=== PATIENT | female | born 1995 | race Caucasian/White ===

== ENCOUNTER 2016-09-11 13:06 | Outpatient (CLI) | payer OTHER ==
[~2016-09-11] VITALS: Ht 170.2 cm; Wt 77.8 kg
[2016-09-11 13:09] VITALS: Ht 170.2 cm; Wt 77.8 kg
[2016-09-11] MEDS ORDERED: PRENAT PO (13:10)
--- NOTE | 2016-09-11 15:24 | RADRPT ---
PROCEDURE: US OB. CLINICAL INDICATION: Bleeding, labor TECHNIQUE: Transabdominal views of the pelvis are available for review. COMPARISON: Obstetrical ultrasound from 08/22/2016 FINDINGS: There is a single intrauterine gestation in a transverse presentation to maternal left. The h eart rate is present at 142 bpm. The placenta is fundal. There is no evidence of placenta previa or a placental abruption. The cervix is closed and measures 4.8 cm in length. RPTAT: AA IMPRESSION: Fundal placenta without evidence of abruption. The cervix is closed and measures 4.8 cm in length. Transverse presentation. Physician Jeremy Date Time Electronically viewed and signed by Physician Jeremy on 09/11/2016 15:24 RA/
== END 2016-09-11 16:30 | disposition home or self-care (01) ==
LOC: OBT 13:06 → L-D 13:06 → OBT 16:30
PROVIDERS: ATTEND Obstetrics & Gynecology
DX: O26.892 Other specified pregnancy related conditions, second trimester (principal); R10.2 Pelvic and perineal pain; O60.02 Preterm labor without delivery, second trimester; Z3A.00 Weeks of gestation of pregnancy not specified
CPT/HCPCS: 76815; 76817; Z7500; G0463

== ENCOUNTER 2016-11-29 03:59 | Inpatient (IN) | payer OTHER ==
[~2016-11-29] VITALS: Ht 170.2 cm; Wt 85.9 kg
[~2016-11-29 03:59] MED LIST: PRENAT PO
[2016-11-29 04:09] VITALS: Ht 170.2 cm; Wt 85.9 kg
[2016-11-29 04:10] VITALS: BP 122/71; PULSE 78; RESP 18
[2016-11-29] MEDS ORDERED: LACTATED RINGER'S 1,000 ML IV PRN (04:54)
[2016-11-29] MEDS ORDERED: OXYTOCIN 30 UNITS/LR 500 ML IV PRN (05:00)
[2016-11-29] MEDS ORDERED: CARBOPROST 250 MCG INJ IM PRN (05:00)
[2016-11-29] MEDS ORDERED: MISOPROSTOL 200 MCG TAB PR PRN (05:00)
[2016-11-29] MEDS ORDERED: LIDOCAINE 1% (MPF) 30 ML INJ INJ PRN (05:00)
[2016-11-29] MEDS ORDERED: AMPICILLIN 2 GM/NS (PMX) 100 ML IV ONE (05:00)
[2016-11-29] MEDS ORDERED: IBUPROFEN 600 MG TAB PO PRN (05:00)
[2016-11-29] MEDS ORDERED: METHYLERGONOVINE 0.2 MG INJ IM PRN (05:00)
[2016-11-29] MEDS ORDERED: BUTORPHANOL 2 MG INJ IV PRN (05:00)
[2016-11-29] MEDS ORDERED: OXYTOCIN 30 UNITS/LR 500 ML IV SCH ×2 (05:00)
[2016-11-29] MEDS ORDERED: ACETAMINOPHEN/CODEINE #3 TAB PO PRN (05:00)
[2016-11-29] MEDS: LACTATED RINGER'S 1,000 ML IV SCH ×3 (05:14→17:06)
[2016-11-29 05:45] LABS: ADD SCAN DIFF NO
[2016-11-29 05:46] LABS: ADD UMIC YES; URINE BILIRUBIN (Dip) NEGATIVE (NEGATIVE); URINE BLOOD (Dip) 3+ (NEGATIVE); URINE COLOR LT. YELLOW (YELLOW); URINE GLUCOSE (Dip) NEGATIVE (NEGATIVE); URINE KETONES (Dip) NEGATIVE (NEGATIVE); URINE LEUKOCYTE ESTERASE (Dip) NEGATIVE (NEGATIVE); URINE NITRITE (Dip) NEGATIVE (NEGATIVE); URINE TOTAL PROTEIN (Dip) NEGATIVE (NEGATIVE); URINE UROBILINOGEN (Dip) 0.2 E.U./dL (0.1-1.0)
[2016-11-29 06:05] LABS: BASOPHILS % 0.2 % (0.0-2.0); EOSINOPHILS # 0.1 10^3/ul (0.0-0.5); EOSINOPHILS % 0.8 % (0.0-7.0); HEMATOCRIT 34.4 % (37.0-47.0); HEMOGLOBIN 11.4 g/dl (12.0-16.0); LYMPHOCYTES # 1.6 10^3/ul (0.8-2.9); LYMPHOCYTES % 17.8 % (15.0-51.0); MEAN CORPUSCULAR HEMOGLOBIN 28.1 pg (29.0-33.0); MEAN CORPUSCULAR HGB CONC 33.1 g/dl (32.0-37.0); MEAN CORPUSCULAR VOLUME 84.7 fl (82.0-101.0); MEAN PLATELET VOLUME 10.8 fl (7.4-10.4); MONOCYTE # 0.6 10^3/ul (0.3-0.9); MONOCYTES % 6.5 % (0.0-11.0); NEUTROPHIL # 6.6 10^3/ul (1.6-7.5); NEUTROPHILS % 74.3 % (39.0-77.0); PLATELET COUNT 250 10^3/UL (140-415); RED BLOOD COUNT 4.06 10^6/ul (4.20-5.40); RED CELL DISTRIBUTION WIDTH 13.2 % (11.5-14.5); WHITE BLOOD COUNT 8.9 10^3/ul (4.8-10.8)
[2016-11-29 06:06] LABS: INR 0.94; PROTIME 12.6 Sec (12.2-14.2)
[2016-11-29 06:07] LABS: PARTIAL THROMBOPLASTIN TIME 28.5 Sec (25.0-35.0)
[2016-11-29 06:11] LABS: BACTERIA,URINE FEW; URINE RBCS 25-50 /HPF (0)
--- NOTE | 2016-11-29 07:17 | RADRPT ---
PROCEDURE: Obstetrical ultrasound. CLINICAL INDICATION: , evaluation. Pelvic pain. Pressure membranes TECHNIQUE: Transabdominal sonographic images of the pelvis are obtained. COMPARISON: 10/07/2016 FINDINGS: Single intrauterine gestation. There is a cephalic presentation. Measurements were made in order to determine age. The results are as follows: BPD = 9.34 cm HC = 32.77 cm AC = 31.74 cm FL = 6.92 cm INDERJIT = 5.4 cm Heart rate = 137 beats per minute The placenta is fundal. There is no evidence for an abruption or placenta previa. Ovaries are not visualized. IMPRESSION: Single intrauterine gestation of approximately 36 weeks 4 days by ultrasound criteria. Estimated weight = 2832 g; 66 percentile for estimated ultrasound age. Low INDERJIT of 5.4 cm. Previously 13.1 cm on 10/07/2016 RPTAT: AADD .Vargas Trejo MD, MD Date Time Electronically viewed and signed by .Vargas Trejo MD, on 11/29/2016 07:16 .B/
[2016-11-29] MEDS ORDERED: BETAMET NA PHOS/AC(6 MG/ML) 5ML INJ IM ONE (09:00)
[2016-11-29] MEDS: AMPICILLIN 1 GM/NS (PMX) 50 ML IV SCH ×4 (11:16→21:12)
--- NOTE | 2016-11-29 15:57 | HP ---
Date/Time of Note Date/Time of Note DATE: 11/29/16 TIME: 15:52 OB - History Hx of Present Chief Complaint: Leakage of fluid. Last Menstrual Period: May 27, 2016 Estimated Due Date: Dec 31, 2016 : 2 Para: 0 Spontaneous : 1 Therapeutic : 0 Care: Good Care Ultrasounds: Normal mid trimester US Obstetrical Complications: None Medical Complications: None Past Family/Social History * Past Medical, Surgical, Family and Obstetric Histories reviewed from chart. GBS Status: Unknown OB Admission Exam Vital Signs Vital Signs Vital Signs Date Time Temp Pulse Resp B/P Pulse Ox O2 Delivery O2 Flow Rate FiO2 11/29/16 04:10 98.5 78 18 122/71 Room Air Physical Exam HEENT: WNL Heart: Rhythm Normal Lungs: Clear Abdomen: WNL Extremities: Normal Cervical Dilatation: 1cm Effacement: 50% Station: -1 Membranes: Ruptured Amniotic Fluid: Clear Heart Rate: 140's Accelerations: Accelerations Present Decelerations: No Decelerations Varibility: Moderate Last 72 hours Lab Results CBC & BMP 11/29/16 05:10 OB Assessment/Plan Reason for admission: IUP - , rupture of membranes Plan: Other Other plan: Case discussed with Dr Nuñez ([facility]) who recommends to give one course of IM betamethasone for lung maturity. IV ampicillin for GBS prophylaxis. DORYS HOLLIS MD Nov 29, 2016 15:57
[2016-11-30] MEDS: AMPICILLIN 1 GM/NS (PMX) 50 ML IV SCH ×7 (00:55→23:11)
[2016-11-30] MEDS: LACTATED RINGER'S 1,000 ML IV SCH ×3 (00:56→18:25)
[2016-11-30] MEDS ORDERED: BETAMET NA PHOS/AC(6 MG/ML) 5ML INJ IM ONE (09:00)
--- NOTE | 2016-11-30 15:20 | QN ---
Documentation Comment No complaint Afebrile VSS Abdomen soft NT Strip Reactive Continue with present care. DORYS HOLLIS MD Nov 30, 2016 15:20
[2016-12-01] MEDS: AMPICILLIN 1 GM/NS (PMX) 50 ML IV SCH ×4 (02:59→14:29)
[2016-12-01] MEDS: BUTORPHANOL 2 MG INJ IV PRN ×2 (04:06→06:08)
[2016-12-01] MEDS: LACTATED RINGER'S 1,000 ML IV SCH ×2 (04:17→16:30)
[2016-12-01] MEDS ORDERED: FENTAnyl 2MCG/ML-ROPIV 0.2% 100 ML ONE ×2 (08:11→16:20)
[2016-12-01] MEDS ORDERED: OXYTOCIN 30 UNITS/LR 500 ML IV SCH (13:00)
[2016-12-01] MEDS ORDERED: NALOXONE (0.4 MG/ML) INJ IV PRN (16:30)
[2016-12-01] MEDS ORDERED: FENTAnyl 2MCG/ML-ROPIV 0.2% 100 ML BAG EPI SCH (16:30)
--- NOTE | 2016-12-01 19:47 | LDN ---
Date/Time of Note Date/Time of Note DATE: 12/01/16 TIME: 19:44 Delivery Summary Weeks of Gestation 35 weeks and 5 days Placenta Delivered: Spontaneously Meconium: none Episiotomy: No Perineal laceration: 1 Laceration repair: First degree laceration repaired with 3-0 Vicryl. Anesthesia type: Epidural Estimated blood loss: 200 Sponge & Needle done & correct: Yes All needle counts correct: Yes Any foreign bodies felt in the: No (Please specify) Problems: Infant Delivery Information Sex Infant Sex: male Apgars 1 Minute: 9 5 Minute: 9 Suctioning Nose & mouth suctioned at tucker: Yes Delee suction performed: No Umbilical Cord Umbilical cord with: 3 Vessels Cord presentations: no nuchal cord Cord Blood was obtained: Yes Mother & Baby Disposition Disposition Mom & Baby to Maternity; Good: Yes DORYS HOLLIS MD Dec 01, 2016 19:47
[2016-12-01] MEDS: LACTATED RINGER'S 1,000 ML IV* SCH (21:17)
[2016-12-01] MEDS ORDERED: OXYTOCIN 30 UNITS/LR 500 ML IV PRN (21:30)
[2016-12-01] MEDS ORDERED: BENZOCAINE 20% 56 ML SPRAY TOP PRN (21:30)
[2016-12-01] MEDS ORDERED: ACETAMINOPHEN 325 MG TAB PO PRN (21:30)
[2016-12-01] MEDS ORDERED: DIBUCAINE 1% 30 GM OINT PR PRN (21:30)
[2016-12-01] MEDS ORDERED: METHYLERGONOVINE 0.2 MG INJ IM PRN (21:30)
[2016-12-01] MEDS ORDERED: ACETAMINOPHEN/CODEINE #3 TAB PO PRN (21:30)
[2016-12-01] MEDS ORDERED: WITCH HAZEL/GLYCERIN PAD PR PRN (21:30)
[2016-12-01] MEDS ORDERED: CARBOPROST 250 MCG INJ IM PRN (21:30)
[2016-12-01] MEDS ORDERED: MISOPROSTOL 200 MCG TAB PR PRN (21:30)
[2016-12-01 21:45] VITALS: BP 115/68; PULSE 89; RESP 17
[2016-12-01 22:00] VITALS: BP 138/83; PULSE 60; RESP 18
[2016-12-01] MEDS: IBUPROFEN 600 MG TAB PO SCH (23:06)
[2016-12-02 04:00] VITALS: BP 104/60; PULSE 68; RESP 17
[2016-12-02] MEDS: LACTATED RINGER'S 1,000 ML IV* SCH ×3 (05:17→21:17)
[2016-12-02] MEDS: IBUPROFEN 600 MG TAB PO SCH ×4 (06:23→23:40)
[2016-12-02 08:05] LABS: ADD SCAN DIFF NO
[2016-12-02 08:07] LABS: BASOPHILS % 0.2 % (0.0-2.0); EOSINOPHILS % 0.3 % (0.0-7.0); HEMATOCRIT 31.1 % (37.0-47.0); HEMOGLOBIN 10.4 g/dl (12.0-16.0); LYMPHOCYTES # 1.4 10^3/ul (0.8-2.9); LYMPHOCYTES % 12.9 % (15.0-51.0); MEAN CORPUSCULAR HEMOGLOBIN 28.7 pg (29.0-33.0); MEAN CORPUSCULAR HGB CONC 33.4 g/dl (32.0-37.0); MEAN CORPUSCULAR VOLUME 85.7 fl (82.0-101.0); MEAN PLATELET VOLUME 10.5 fl (7.4-10.4); MONOCYTE # 0.6 10^3/ul (0.3-0.9); MONOCYTES % 5.8 % (0.0-11.0); NEUTROPHIL # 8.8 10^3/ul (1.6-7.5); NEUTROPHILS % 80.2 % (39.0-77.0); PLATELET COUNT 247 10^3/UL (140-415); RED BLOOD COUNT 3.63 10^6/ul (4.20-5.40); RED CELL DISTRIBUTION WIDTH 13.4 % (11.5-14.5); WHITE BLOOD COUNT 10.9 10^3/ul (4.8-10.8)
[2016-12-02 08:40] VITALS: BP 109/53; PULSE 61; RESP 17
[2016-12-02] MEDS: SENNA/DOCUSATE NA (8.6MG/50MG) TAB PO SCH ×2 (09:21→20:51)
[2016-12-02 12:00] VITALS: BP 105/69; PULSE 89; RESP 17
[2016-12-02 16:00] VITALS: BP 104/62; PULSE 77; RESP 16
--- NOTE | 2016-12-02 19:47 | QN ---
Documentation Comment No complaint Afebrile VSS Fundus Firm Lochia scant PPD #1 Stable Continue care. DORYS HOLLIS MD Dec 02, 2016 19:46
[2016-12-02 20:35] VITALS: BP 121/84; PULSE 90; RESP 19
[2016-12-03 03:50] VITALS: BP 109/73; PULSE 87; RESP 18
[2016-12-03] MEDS: IBUPROFEN 600 MG TAB PO SCH ×3 (05:33→18:11)
[2016-12-03 09:00] VITALS: BP 119/78; PULSE 79; RESP 18
[2016-12-03] MEDS ORDERED: INFLUENZA VIRUS VACCINE 0.5 ML (DISPENSING) IM* ONE (09:00)
[2016-12-03] MEDS ORDERED: MULTIVIT/MIN/FOLATE/IRON/PREN TAB PO SCH (09:00)
[2016-12-03] MEDS: SENNA/DOCUSATE NA (8.6MG/50MG) TAB PO SCH (09:00)
[2016-12-03] MEDS ORDERED: DIPHTH/TET/ACEL PERTUSS (ADULT) 0.5 ML VIAL IM* ONE (09:00)
[2016-12-03 16:18] VITALS: BP 109/69; PULSE 74; RESP 18
--- NOTE | 2016-12-03 20:52 | DS ---
Date/Time of Note Date/Time of Note DATE: 12/03/16 TIME: 20:49 Obstetrical Discharge Record Final Diagnosis Final Diagnosis: delivered Vaginal Delivery Obstetrical Delivery: Spontaneous Complications Augmentation: Yes Rupture of Membranes: Yes Gestational Age at Rupture 35 weeks Condition on Discharge Physical Assessment Voiding: Yes Bowel Movement: Yes Breast: Soft, non-tender Fundus: Firm Calf Tenderness: No Patient Condition: Stable DORYS HOLLIS MD Dec 03, 2016 20:52
== END 2016-12-03 21:00 | disposition home or self-care (01) | DRG 775 ==
LOC: OBT 03:59 → L-D 03:59 → OBT 04:45 → PP1 12-01 21:53
PROVIDERS: ADMIT Obstetrics & Gynecology; ATTEND Obstetrics & Gynecology
PROC: 10E0XZZ Delivery of Products of Conception, External Approach (ICD-10-PCS; principal; 2016-12-01)
PROC: 0HQ9XZZ Repair Perineum Skin, External Approach (ICD-10-PCS; 2016-12-01)
PROC: 3E0234Z Introduction of Serum, Toxoid and Vaccine into Muscle, Percutaneous Approach (ICD-10-PCS; 2016-12-03)
DX: O60.14X0 Preterm labor third trimester with preterm delivery third trimester, not applicable or unspecified (principal); O70.0 First degree perineal laceration during delivery; Z3A.35 35 weeks gestation of pregnancy; Z37.0 Single live birth; Z23 Encounter for immunization
CPT/HCPCS: 36415; 62319; 76815; 81001; 81003; 84112; 85025; 85610; 85730; 86592; 86900; 86901; 87086; 87340; 88307; 90686; 90715; 99464; G0463; J0290; J0702; J2590; J3010; J7120